=== PATIENT | male | born 1990 | race Caucasian/White ===

== ENCOUNTER → 2024-05-12 | Outpatient (CLI) | payer BC, SELFPAY ==
[2024-05-12 17:44] LABS: Absolute Neutrophil Count 8.1 X10^3/uL (2.0-7.7); Basophil# 0.06 X10^3/uL; Basophil% 0.5 % (0-1); Eosinophil# 0.27 X10^3/uL; Eosinophils% 2.4 % (0-5); Hematocrit 44.7 % (40-54); Hemoglobin 14.9 g/dL (13.0-16.5); Lymphocyte % 19.3 % (19-41); Mean Corp Hgb Conc 33.3 g/dL (32-36); Mean Corpuscular Hgb 29.1 pg (27.0-32.0); Mean Corpuscular Volume 87.3 fL (80-94); Mean Platelet Vol. 9.6 fl (6.2-12.0); Monocyte# 0.76 X10^3/uL; Monocyte% 6.7 % (0-10); NRBC Flagged by Analyzer 0 % (0-5); Neutrophil # 8.09 X10^3/uL (2.7-7.7); Neutrophil % 70.7 % (47-70); Platelet Count 291 K/mm3 (150-450); RBC Distribution Width CV 12.5 % (11.6-14.6); Red Blood Count 5.12 M/mm3 (4.6-6.2); White Blood Count 11.4 K/mm3 (4.4-11.0)
[2024-05-12 18:29] LABS: AST(SGOT) 40 U/L (15-37); Alanine Aminotransfer ALT/SGPT 65 U/L (16-61); Alkaline Phosphatase 53 U/L (45-117); Anion Gap 7 (5-15); BUN 22 mg/dL (7-18); BUN/Creat Ratio 19.8 RATIO (10-20); Calcium,Total 9.6 mg/dL (8.5-10.1); Chloride 108 mmol/L (98-107); Cholesterol 182 mg/dL (200); Creatinine, Serum 1.11 mg/dL (0.70-1.30); EST Glomerular Filtration Rate 81 mL/min (>60); Est Glom Filt Rate - Afr Amer 97 mL/min (>60); Globulin 4.2 g/dL (2.2-4.2); Glucose 99 mg/dL (74-106); High Density Lipoprotein 32 mg/dL; Protein, Total 8.2 g/dL (6.4-8.2); Sodium Level 138 mmol/L (136-145); Triglycerides 376 mg/dL; Very Low Density Lipoprotein 75 mg/dL (5-40)
== END | disposition home or self-care (01) ==
PROVIDERS: PCP Nurse Practitioner Family; Referring Provider Nurse Practitioner Family; Visit Provider Nurse Practitioner Family
DX: Z00.01 Encounter for general adult medical examination with abnormal findings (principal)
CPT/HCPCS: 36415; 80053; 80061; 85025

== ENCOUNTER 2024-06-19 07:14 | Day surgery (SDC) | payer BC, SELFPAY ==
[2024-06-19] VITALS (7 sets, daily range): BP systolic 105–131; BP diastolic 61–89; PULSE 69–108; RESP 16–18; TEMP 36.3–37.3; O2SAT 94–97; BMI 39.5
--- NOTE | 2024-06-19 07:31 | PCM.PRE.AN2 ---
ASA Classification* ASA Classification ASA Classification: 2 Assessment & Plan Anesthesia* Anesthesia Assessment Anesthesia Assessment: Discussed sedation and/or anesthesia options, risks, benefits, and alternatives with patient/parents/legal guardian/POA. Questions invited. The patient/parents/legal guardian/POA seems to understand and agrees to proceed with anesthesia plan. Reviewed the physical assessment, medical history, allergy history and patient home medications list prior to surgery/procedure/anesthetic and documented any changes. Performed airway and anesthesia risk assessments. Anesthesia Type Anesthesia Type: General Anesthesia Focused Assessment* Airway Assessment Mouth opens: >3 cm Mallampati Score: II Focused Labs Anesthesia Preop lab: CBC WBC 11.4 K/mm3 (4.4-11.0) H 05/12/24 16:13 RBC 5.12 M/mm3 (4.6-6.2) 05/12/24 16:13 Hgb 14.9 g/dL (13.0-16.5) 05/12/24 16:13 Hct 44.7 % (40-54) 05/12/24 16:13 Plt Count 291 K/mm3 (150-450) 05/12/24 16:13 CHEMISTRY Potassium 4.0 mmol/L (3.5-5.1) 05/12/24 16:13 Sodium 138 mmol/L (136-145) 05/12/24 16:13 BUN 22 mg/dL (7-18) H 05/12/24 16:13 Creatinine 1.11 mg/dL (0.70-1.30) 05/12/24 16:13 Glucose 99 mg/dL (74-106) 05/12/24 16:13 COAG Pre-Assessment Diagnosis/Proposed Procedure Planned Operative Procedure(s): HERNIA UMBILICAL REPAIR POSS MESH Anesthesia History 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 When Was Last Pacemaker Check QUESTION #4 FULL TEXT: You/Your Family Experience fever (hyperthermia) with Anesthesia Last Oral Intake Last Oral intake: Last Oral Intake NPO since Meds taken in AM with sips of water? 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 operator Female No 06/11/24 15:01 HX of Motion Sickness No 06/11/24 15:01 HX of N/V After Surgery No 06/11/24 15:01 Non-Smoker No 06/11/24 15:01 Duration of Surgery greater Yes 06/11/24 15:01 than 60 minutes Number of Risk Factors 1 06/11/24 15:01 PONV Score Low Risk 06/11/24 15:01 Height & Weight Height & Weight: Anesthesia: Height & Weight Height 5 ft 11 in 05/18/24 15:02 Respiratory Assessment Respiratory Assessment - heel nailing machine operator: Respiratory Tract Infection Hx - heel nailing machine operator Hx Respiratory Tract Infection No 06/11/24 15:01 STOP Sleep Apnea STOP Sleep Apnea - heel nailing machine operator: STOP Sleep Apnea - heel nailing machine operator Hx Hypertension Yes: NO MEDS FOR 2-3 YRS 06/11/24 15:01 Hx Sleep Apnea No 06/11/24 15:01 CPAP BIPAP Do you snore loudly (louder No 06/11/24 15:01 than talking or can be heard Do you often feel tired/ No 06/11/24 15:01 fatigued/ sleepy during daytime? Has anyone observed you stop No 06/11/24 15:01 breathing during sleep? STOP Results Negative 06/11/24 15:01 QUESTION #5 FULL TEXT : Do you snore loudly (louder than talking or can be heard through closed doors)? 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 Specify any problems Hx of Preganancy in last 3 N/A 06/11/24 15:01 Months Nurse Filling Out Transfusion DSCHRIBER 06/11/24 15:01 & Questions: Date: 06/11/24 06/11/24 15:01 Time: 15:02 06/11/24 15:01 Patient unable to answer at this time (ie. confused, unrespo /Reproduction History /Reproductive History - heel nailing machine operator: /Reproductive Hx- heel nailing machine operator Hx Now No 06/11/24 15:01 Gestational Age (in weeks): EDC: Hx Hx Para Hx Section SAB No 06/11/24 15:01 Active Medications Active Medications: Current Medications Generic Name Dose Route Start Last Admin Trade Name Freq PRN Reason Stop Dose Admin Clindamycin Phosphate 900 mg in 50 mls @ 75 mls/hr 06/19/24 09:00 Cleocin IV 06/19/24 09:39 PREOP ONE Sodium Chloride 1,000 mls @ 15 mls/hr 06/19/24 07:20 IV 06/24/24 20:39 .Q48H [facility] Protocol PFSH Medical History Back pain Asthma Vapes nicotine containing substance Leg cramps History of edema Hypertension Umbilical hernia Home Medications ?Medication ?Instructions ?Recorded ?Last Taken ?Type NK 06/11/24 Unknown History Allergy/AdvReac Type Severity Reaction Status Date / Time Penicillins Allergy Anaphylaxis Verified 06/19/24 07:28 Family History Mother CVA (cerebral vascular accident) Diabetes Hypertension Father CVA (cerebral vascular accident) Surgical History S/P vasectomy S/P excision of ganglion cyst S/P eye surgery S/P tonsillectomy Social History Smoking Status: Current some day smoker tobacco type: e-cigarettes alcohol intake: current Review of Systems (Anesthesia) ROS Narrative System reviewed and no additional complaints, except as documented.
[2024-06-19] MEDS: 0.9% Normal Saline (1000mL) 1,000 ML 15 ML IV (07:43)
--- NOTE | 2024-06-19 08:22 | PCM.HP.BLA ---
History and Physical Date of Admission: 06/19/24 Intake Vital Signs 12/31/1408:09 05/18/2415:02 Height 5 ft 11 in 5 ft 11 in Weight: 284 lb BMI 39.6 BP 133/89 H Blood Pressure Location Rt brachial Position Sitting Respiration 18 Intake Visit Reasons: UMBILICAL HERNIA Chief Complaint: umbilical hernia Training And Development Officer Required: No Is patient in pain?: No Allergies Penicillins Allergy (Verified 12/31/13 09:08) Anaphylaxis Have you fallen in the past year?: No PFSH Medical History (Updated 05/19/24 @ 06:[address] Get Gatica MD) Umbilical hernia Surgical History (Updated 05/18/24 @ 15:01 by Yesi Clayton) S/P vasectomy S/P excision of ganglion cyst S/P eye surgery S/P tonsillectomy Family History (Updated 05/18/24 @ 15:01 by Yesi Clayton) Mother CVA (cerebral vascular accident) Diabetes HypertensionFather CVA (cerebral vascular accident) Social History (Updated 05/18/24 @ 15:02 by Yesi Clayton) Smoking Status: Former smoker alcohol intake: current HPI HPI HPI: Patient is a 34-year-old male here with umbilical hernia. He says has been there for several years. He denies nausea or vomiting or fevers or chills. ROS General General: No weight change, appetite, fatigue, colon cancer, breast cancer or weakness HEENT HEENT: No difficulty swallowing, eye injury, eye surgery, swollen glands or hoarseness Endo Endocrine: No thyroid disease, diabetes mellitus, thyroid cancer, Hair loss, heat intolerance or cold intolerance Skin Skin: No rash or changing moles Breast Breast: No left breast lump, right breast lump, nipple discharge, breast pain, abnormal mammogram, abnormal US or breast enlargement Musc Musculoskeletal: No back problems, arthritis, rheumatoid arthritis, gout or joint pain Cardio Cardiovascular: No murmur, pacemaker, heart disease, atrial fibrillation, high blood pressure, heart attack, heart stent, palpitations, shortness of breat with exertion or chest pain Psych Psychiatric: No depression, anxiety or hearing voices Resp Respiratory: No shortness of breath, No sleep apnea, No cough, No COPD, No asthma, No emphysema and No wheezing Gastro Gastrointestinal: No abdominal pain, No nausea or vomiting, No diarrhea, No constipation, No blood in stool, No acid reflux, No hemorrhoids, No ulcers, No gallbladder problem and No black,tarry stools Cheko Hematologic: No blood thinners, No blood disorders, No bleeding, No anemia and No blood clots Neuro Neurologic: No system reviewed and no additional complaints, except as documented, No as per HPI, No abnormal gait, No abnormal hearing, No abnormal movements, No abnormal speech, No behavioral changes, No burning sensations, No confusion, No convulsions, No disequilibrium, No dizziness, No localized weakness, No frequent falls, No headache(s), No lack of coordination, No loss of vision, No memory loss, No numbness, No other visual disturbances, No radicular pain, No restless legs, No sensory deficit, No syncope, No tingling, No tremor(s), No weakness and No other Exam Const General: cooperative Orientation: alert and oriented x3 HENMT Head: normal to inspection Neck Neck: normal visual inspection and full ROM Chest Chest palpation & inspection: normal inspection of the chest Resp Effort & Inspection: normal respiratory effort Auscultation: clear to auscultation bilaterally Cardio Rate: regular rate Rhythm: regular rhythm GI Inspection: non-distended Palpation: soft, hernia umbilical and nontender Skin General: no rashes or lesions noted Neuro General: patient alert and patient oriented x3 Extrem General: full ROM Psych Appearance: grossly normal Mental Status: mental status grossly normal Assessment and Plan Assessment and Plan (1) Umbilical hernia: Status: Acute Qualifiers: Obstruction and gangrene presence: without obstruction or gangrene Qualified Code(s): K42.9 - Umbilical hernia without obstruction or gangrene Plan: The patient has a very small reducible umbilical hernia. I discussed repair with him. I discussed repairing it with mesh if it is over 1 cm in diameter. I discussed the risks of the procedure such as bleeding, infection, injury other organs such as the bowel. Patient understands all the risks and is willing to proceed with umbilical hernia repair with possible mesh. Postoperative care was discussed as well. Get Gatica MD Pager: [facility] [address] [place] [address], [address] [place] [address] Office: I have examined the patient and the H&P has been reviewed. There are no clinical changes since date of exam.
[2024-06-19] MEDS: Clindamycin 900 MG/50 ML BAG 75 MG IV (08:50)
[2024-06-19] MEDS: Bupiv/Epi 0.25% 30 ML Vial (09:01)
--- NOTE | 2024-06-19 09:36 | PCM.POST.ANE ---
Anesthesia: Postop Eval I Current Vital Signs Temperature: 99.1 F Pulse Rate: 108 Blood Pressure: 116/64 Respiratory Rate: 16 Pulse Ox: 94 Assessment Airway patent: Yes Spontaneous unlabored respirations: Yes nausea: No Vomiting: No Anesthesia Complication: No Fluid Hydration Crystalloid volume administer (ml): 300 Total IV fluid infused: 300 Progress Note Anesthesia document: Postop Eval 1 completed: Yes
--- NOTE | 2024-06-19 09:37 | PCM.POSTANE2 ---
Anesthesia Postop Eval I Sum Postop Eval Completion status Anesthesia document: Postop Eval 1 completed: Yes Anesthesia Postop Eval I Summary Anesthesia Postop Eval I Summary: Anesthesia Postop Eval I: Assessment Summary Airway patent Yes 06/19/24 09:37 Spontaneous unlabored Yes 06/19/24 09:37 respirations Mental status nausea No 06/19/24 09:37 Vomiting No 06/19/24 09:37 Anesthesia Postop Eval I: Fluid Summary Crystalloid volume administer 300 06/19/24 09:37 (ml) Colloids volume administered ( ml) Blood Product volume administered (ml) Total IV fluid infused 300 06/19/24 09:37 Anesthesia Postop Eval I: Summary Notes Anesthesia Complication No 06/19/24 09:37 Anesthesia Complication Comment: Post-operative progress note Anesthesia: Postop Eval II Evaluation Mental status: Awake Pain Level: 2 nausea: No Vomiting: No
--- NOTE | 2024-06-19 09:42 | PCM.OPRPT ---
Operative Report (Standard) Operative Information Date of Procedure: 06/19/24 Pre-Operative Diagnosis: Umbilical hernia Post-Operative Diagnosis: Umbilical hernia Surgery/Procedure Performed: Umbilical hernia repair less than 3 cm civil engineering project designer: Yes Pharmacy Clinical Coordinator: Sathya Hurtado Tasks completed by educational assistant: Opening, Closing and Retracting Type of Anesthesia: General/Regional RN Documented Start/Stop Times: Operation Date: 06/19/24 09:00 Case Time Into Pre-Op 06/19/24 07:19 Out of Pre-Op 06/19/24 08:44 Anesthesia Start 06/19/24 08:45 Into Room 06/19/24 08:45 Procedure Start 06/19/24 09:08 Procedure End 06/19/24 09:22 Anesthesia End 06/19/24 09:29 Out of Room 06/19/24 09:29 Into Recovery 06/19/24 09:33 Procedure Start Time: 09:08 Procedure Stop Time: 09:22 Select all DRAINS/GRAFTS/IMPLANTS that apply: None Estimated Blood Loss: 5 Specimen collected: No Description of surgery: The patient was brought to the operating room and general anesthesia was induced. The abdomen was prepped and draped in usual sterile fashion. A curvilinear incision was marked superior to the umbilicus and injected with local anesthetic. Incision was then made and the hernia sac was encountered. It was dissected off of the umbilical stalk and and its other surrounding adhesions. The hernia and hernia sac was reduced. The fascia was closed with 3 interrupted 0 Nurolon sutures. The cavity was irrigated and suctioned dry. Incision was closed with interrupted 3-0 Vicryl sutures and a running 4-0 Monocryl suture. Steri-Strips and a bandage were applied. Patient was taken to PACU in stable condition and tolerated procedure well. Surgical Findings: Umbilical hernia 8 mm Complications Complications: No Admit VTE Documentation VTE Mechan Device Prophylaxis: SCD's
--- NOTE | 2024-06-19 09:46 | DCINST_ITS ---
Discharge Instructions Diet Discharge Diet: Light diet - advance as tolerated Activity Discharge Activity: May Not Drive (for 2-3 days or while taking narcotic pain meds.) and May Shower (with the bandage in place 1-2 days after surgery.) Lifting Restrictions: 20 pounds for 2 weeks Additional Activity Instructions:: Climbing stairs is fine, walking is encouraged. Sitting in bed may be uncomfortable. Sitting up using your lateral muscles (sitting up sideways) is usually more comfortable. Do not drive, work heavy equipment or sign legal documents for 24 hours. Pain medications may cause nausea, you should typically eat light foods as you take your pain medications. Pain medications may also cause constipation. If you have difficulty with this, discuss with your doctor. Alternate ibuprofen and Tylenol for pain control, oxycodone for breakthrough pain Dressing / Incision Call your doctor if your incision/area has: Continuous Slow Oozing, Sudden Increased Bleeding, Increased Pain/ Swelling, Increased Redness and Foul Smelling Discharge Call your doctor if you observe: Fever of 101 or Higher Suture Line Care: Avoid Pulling/Pushing and Avoid Pinching/Bending Remove Dressing in: 2 days (Remove clear bandages in 2 days, remove Steri-Strips in 7 to 10 days.) Follow Up Care Please Follow Up With: Get Gatica MD When: Please call to schedule 2 week follow up appointment. [phone] Test Results: Test results from this visit will be discussed in further detail at your follow- up appointment, if applicable. Discharge Plan Admission Attending Provider: Get Gatica Primary Care Provider: Ute Blackwood Instructions Print Language: Sinhala Discharge Orders/Prescriptions Prescriptions: New oxycodone 5 mg Tablet 5 - 10 mg PO Q4H PRN PRN (Reason: Pain Score 4-10) 5 Days Qty: 14 0RF Referrals / Follow Up: Ute Blackwood, APPLE-C [Primary Care Provider] - Disposition Disposition (needs filled in before D/C Order can be placed): Home, Self Care
== END 2024-06-19 11:08 | disposition home or self-care (01) ==
LOC: SDC 07:15 → AC 07:17
PROVIDERS: PCP Nurse Practitioner Family; Referring Provider Surgery; Visit Provider Surgery
PROC: (CPT 49591; principal; 2024-06-19 08:45)
DX: K42.9 Umbilical hernia without obstruction or gangrene (principal); Z87.891 Personal history of nicotine dependence; J45.909 Unspecified asthma, uncomplicated; I10 Essential (primary) hypertension
CPT/HCPCS: 49591; 00830; J2405